=== PATIENT | male | born 1955 | race African-American/Black ===

== ENCOUNTER 2019-02-07 21:36 | Emergency (ER) | payer OTHER ==
[~2019-02-07] VITALS: Ht 167.6 cm; Wt 96.0 kg
[2019-02-07 22:41] VITALS: BP 125/82
== END 2019-02-08 01:14 | disposition left against medical advice (07) ==
LOC: ER 02-08 00:16
DX: R10.9 Unspecified abdominal pain (principal); Z53.21 Procedure and treatment not carried out due to patient leaving prior to being seen by health care provider

== ENCOUNTER 2019-02-09 02:22 | Inpatient (IN) | payer OTHER ==
[~2019-02-09] VITALS: Ht 167.6 cm; Wt 90.9 kg
[2019-02-09] MEDS ORDERED: MORPHINE SULFATE 4 MG/ML CPJ (NOT FOR IM USE) IV STA ×2 (03:39→06:00)
[2019-02-09] MEDS ORDERED: ONDANSETRON HCL 4MG/2ML INJ IV STA ×2 (03:39→06:00)
[2019-02-09] MEDS ORDERED: SODIUM CHLORIDE 0.9% 1,000 ML IV ONE ×3 (03:39→06:00)
[2019-02-09 04:13] LABS: BASOPHILS % 0.9 % (0.0-2.0); EOSINOPHILS % 2.3 % (0.0-5.0); HEMATOCRIT. 31.7 % (42.0-52.0); HEMOGLOBIN. 10.6 g/dL (14.0-18.0); LYMPHOCYTES % 14.7 % (20.0-50.0); MEAN CORPUSCULAR HEMOGLOBIN 28.9 pg (28.0-32.0); MEAN CORPUSCULAR VOLUME 86.6 fL (80.0-94.0); MEAN PLATELET VOLUME 6.1 fl (7.4-10.4); NEUTROPHILS % 77.1 % (40.0-76.0); PLATELET 577 x1000/uL (130-400); RED BLOOD CELL COUNT 3.66 mill/uL (4.7-6.1); RED CELL DISTRIBUTION WIDTH 13.7 % (11.6-14.6)
[2019-02-09 04:18] LABS: CHLORIDE 106 mEq/L (98-107)
[2019-02-09] MEDS ORDERED: SODIUM CHLORIDE 0.9% 2,000 ML IV ONE (05:55)
[2019-02-09] MEDS ORDERED: CEFTRIAXONE 1 G PREMIX 50 ML IV ONE (06:00)
[2019-02-09] MEDS ORDERED: PANTOPRAZOLE SODIUM 40 MG/VIAL IV ONE (06:00)
[2019-02-09] MEDS ORDERED: METRONIDAZOLE 500 MG PREMIX 100 ML IV ONE (06:00)
[2019-02-09] MEDS ORDERED: DIATR MEGLU/DIATRIZOATE SOLN 30ML ONE (06:06)
[2019-02-09] MEDS ORDERED: BARIUM SULFATE(VOLUMEN) 450 ML ORAL.SUSP ONE (06:06)
[2019-02-09] MEDS ORDERED: DIATR MEGLU/DIATRIZOATE SOLN 120ML ONE ×2 (06:07→07:15)
[2019-02-09 06:32] LABS: PROTHROMBIN TIME 10.8 sec (9.6-11.0)
[2019-02-09] MEDS ORDERED: MORPHINE SULFATE 4 MG/ML CPJ (NOT FOR IM USE) IV ONE (07:30)
[2019-02-09] MEDS ORDERED: PHENYLEPHRINE HCL 10 MG/ML 1ML (IV VIAL) IV ONE (09:07)
[2019-02-09] MEDS ORDERED: PROPOFOL 200MG/20ML VIAL IV ONE (09:09)
[2019-02-09] MEDS ORDERED: SUCCINYLCHOLINE CHLORIDE 200MG/10ML IV ONE (09:09)
[2019-02-09] MEDS ORDERED: ROCURONIUM BROMIDE 10MG/ML VIAL 5ML IV ONE ×2 (09:09→10:04)
[2019-02-09] MEDS ORDERED: FENTANYL CITRATE/PF 50MCG/ML 2ML VIAL ONE (09:10)
[2019-02-09] MEDS ORDERED: LIDOCAINE HCL 1% 20ML VIAL (Pyxis) INJ ONE (09:13)
[2019-02-09] MEDS ORDERED: EPHEDRINE SULFATE 50MG/ML VIAL ONE (09:14)
[2019-02-09] MEDS ORDERED: LEVOFLOXACIN 500MG PREMIX 100 ML IV ONE (09:34)
[2019-02-09] MEDS ORDERED: BUPIVACAINE HCL 0.5% (5MG/ML) 50ML ONE (10:08)
[2019-02-09] MEDS ORDERED: ONDANSETRON HCL 4MG/2ML INJ ONE (10:13)
[2019-02-09] MEDS ORDERED: NEOSTIGMINE METHYLSULFATE 1MG/ML 10 ML VIAL ONE (10:14)
[2019-02-09] MEDS ORDERED: GLYCOPYRROLATE 0.2 MG/ML 2ML VIAL ONE ×2 (10:14→10:17)
[2019-02-09] MEDS ORDERED: BUPIVACAINE HCL 0.5% 290 ML in ON-Q PM015 DRUG DELIV DEVICE 1 EA IR SCH (10:15)
[2019-02-09] MEDS ORDERED: MIDAZOLAM HCL 2 MG/2 ML VIAL ONE (10:25)
[2019-02-09] MEDS ORDERED: HYDROMORPHONE HCL/PF 2MG/ML (OR) ONE (10:41)
[2019-02-09 10:46] LABS: CLARITY URINE CLEAR (CLEAR); COLOR URINE YELLOW (YELLOW); KETONES URINE NEGATIVE (NEGATIVE); LEUKOCYTE ESTERASE URINE NEGATIVE (NEGATIVE); NITRITE URINE NEGATIVE (NEGATIVE); OCCULT BLOOD URINE TRACE (NEGATIVE); PH URINE 6.5 (4.5-8.0); PROTEIN URINE TRACE (NEGATIVE); SPECIFIC GRAVITY URINE 1.022 (1.005-1.030); UROBILINOGEN URINE 0.2 E.U./dL (0.2-1.0)
[2019-02-09 10:56] LABS: *AMPHETAMINES SCREEN URINE NEGATIVE (NEGATIVE); *BARBITURATES SCREEN URINE NEGATIVE (NEGATIVE); *BENZODIAZEPINES SCREEN URINE NEGATIVE (NEGATIVE)
[2019-02-09 10:57] LABS: CANNABINOID URINE SCREEN NEGATIVE (NEGATIVE); METHADONE URINE SCREEN NEGATIVE (NEGATIVE); OPIATES URINE SCREEN PRESUMTIVE POSITIVE (NEGATIVE); PHENCYCLIDINE URINE SCREEN NEGATIVE (NEGATIVE)
[2019-02-09] MEDS ORDERED: ONDANSETRON HCL 4MG/2ML INJ IV PRN (11:00)
[2019-02-09] MEDS ORDERED: HYDROMORPHONE HCL/PF 2MG/ML CPJ IV PRN (11:00)
[2019-02-09 11:01] LABS: *COCAINE SCREEN URINE NEGATIVE (NEGATIVE)
[2019-02-09] MEDS: FENTANYL CITRATE/PF 50MCG/ML 2ML VIAL IV PRN ×2 (11:52→12:44)
[2019-02-09 16:00] VITALS: BP 133/71
[2019-02-09] MEDS ORDERED: MORPHINE SULFATE 2 MG/ML CPJ (NOT FOR IM USE) IV PRN ×2 (17:01→21:30)
[2019-02-09] MEDS ORDERED: MORPHINE SULFATE 4 MG/ML CPJ (NOT FOR IM USE) IV PRN (17:02)
[2019-02-09] MEDS ORDERED: IPRATROPIUM/ALBUTEROL 0.5-3(2.5)MG/3ML NEB HHN PRN (18:30)
[2019-02-09] MEDS ORDERED: NALOXONE HCL 0.4 MG/ML 1ML VIAL IV PRN (18:30)
[2019-02-09 20:00] VITALS: BP 123/72
[2019-02-09] MEDS: DEXT 5%/0.45% NACL KCL 20MEQ/L 1,000 ML IV SCH (21:36)
[2019-02-10] VITALS (9 sets, daily range): BP systolic 114–148; BP diastolic 65–97
[2019-02-10] MEDS: LORAZEPAM 2MG/ML CPJ IV PRN ×3 (01:11→20:49)
[2019-02-10] MEDS: DEXT 5%/0.45% NACL KCL 20MEQ/L 1,000 ML IV SCH (06:07)
[2019-02-10 07:14] LABS: MEAN CORPUSCULAR HEMOGLOBIN 28.7 pg (28.0-32.0); MEAN CORPUSCULAR VOLUME 85.9 fL (80.0-94.0); MEAN PLATELET VOLUME 6.3 fl (7.4-10.4); PLATELET 473 x1000/uL (130-400); RED BLOOD CELL COUNT 3.14 mill/uL (4.7-6.1); RED CELL DISTRIBUTION WIDTH 13.4 % (11.6-14.6)
[2019-02-10 07:34] LABS: CHLORIDE 105 mEq/L (98-107)
[2019-02-10 07:43] LABS: HDL CHOLESTEROL 43 mg/dL (40-59)
[2019-02-10 07:45] LABS: LDL CHOLESTEROL 33 mg/dL (5-100)
[2019-02-10 07:46] LABS: TOTAL IRON BINDING CAPACITY 207 ug/dL (250-450)
[2019-02-10 08:39] LABS: PLATELET ESTIMATE SLIGHTLY INCREASED
[2019-02-10] MEDS ORDERED: ACETAMINOPHEN 650MG SUPP PR PRN (08:45)
[2019-02-10] MEDS ORDERED: LEVOFLOXACIN 500MG PREMIX 100 ML IV SCH (10:00)
[2019-02-10] MEDS: SODIUM CHLORIDE 0.9% 1,000 ML IV SCH ×2 (10:09→20:51)
[2019-02-10] MEDS: MORPHINE SULFATE 2 MG/ML CPJ (NOT FOR IM USE) IV PRN ×2 (12:21→16:40)
[2019-02-10] MEDS ORDERED: IPRATROPIUM/ALBUTEROL 0.5-3(2.5)MG/3ML NEB HHN PRN (14:15)
[2019-02-10] MEDS ORDERED: NICOTINE 21MG PATCH TD NR (14:15)
[2019-02-10] MEDS: CEFEPIME 2,000 MG in DEXT 5% WATER 100 ML IV SCH (14:25)
[2019-02-10] MEDS: METRONIDAZOLE 500 MG PREMIX 100 ML IV SCH (16:39)
[2019-02-10] MEDS: IRON SUCROSE COMPLEX 100 MG/5 ML ML IV SCH (16:40)
[2019-02-10] MEDS: BUDESONIDE 0.5MG/2ML NEB HHN SCH (20:44)
[2019-02-10] MEDS: IPRATROPIUM/ALBUTEROL 0.5-3(2.5)MG/3ML NEB HHN SCH (20:44)
[2019-02-11] VITALS (14 sets, daily range): BP systolic 114–176; BP diastolic 48–107
[2019-02-11] MEDS: METRONIDAZOLE 500 MG PREMIX 100 ML IV SCH ×3 (00:25→16:50)
[2019-02-11] MEDS: ACETYLCYSTEINE 100MG/ML 10% VIAL 4ML INH SCH ×4 (00:41→16:19)
[2019-02-11] MEDS: IPRATROPIUM/ALBUTEROL 0.5-3(2.5)MG/3ML NEB HHN SCH ×6 (00:41→20:05)
[2019-02-11] MEDS: CEFEPIME 2,000 MG in DEXT 5% WATER 100 ML IV SCH ×2 (01:37→15:14)
[2019-02-11] MEDS: MORPHINE SULFATE 2 MG/ML CPJ (NOT FOR IM USE) IV PRN ×2 (01:54→18:38)
[2019-02-11] MEDS: SODIUM CHLORIDE 0.9% 1,000 ML IV SCH ×2 (06:46→15:14)
[2019-02-11] MEDS: BUDESONIDE 0.5MG/2ML NEB HHN SCH ×2 (08:41→20:05)
[2019-02-11 10:17] LABS: HEMATOCRIT. 30.3 % (42.0-52.0); HEMOGLOBIN. 10.1 g/dL (14.0-18.0); MEAN CORPUSCULAR HEMOGLOBIN 29.1 pg (28.0-32.0); MEAN CORPUSCULAR VOLUME 87.7 fL (80.0-94.0); MEAN PLATELET VOLUME 6.3 fl (7.4-10.4); PLATELET 508 x1000/uL (130-400); RED BLOOD CELL COUNT 3.46 mill/uL (4.7-6.1); RED CELL DISTRIBUTION WIDTH 13.5 % (11.6-14.6)
[2019-02-11 10:25] LABS: CHLORIDE 103 mEq/L (98-107)
[2019-02-11 10:30] LABS: PHOSPHORUS 2.5 mg/dL (2.5-4.9)
[2019-02-11 11:25] LABS: PLATELET ESTIMATE INCREASED
[2019-02-11] MEDS: NICOTINE 21MG PATCH TD SCH (15:21)
[2019-02-11] MEDS: IRON SUCROSE COMPLEX 100 MG/5 ML ML IV SCH (16:51)
[2019-02-11] MEDS: ONDANSETRON HCL 4MG/2ML INJ IV PRN (17:37)
[2019-02-11 21:07] LABS: HEMATOCRIT 27.8 % (42.0-52.0); HEMOGLOBIN 9.3 g/dL (14.0-18.0)
[2019-02-11] MEDS: PANTOPRAZOLE SODIUM 40 MG/VIAL IV SCH (21:08)
[2019-02-11] MEDS: LORAZEPAM 2MG/ML CPJ IV PRN (21:08)
[2019-02-12] VITALS (14 sets, daily range): BP systolic 98–134; BP diastolic 45–91
[2019-02-12] MEDS: ACETYLCYSTEINE 100MG/ML 10% VIAL 4ML INH SCH ×3 (00:38→14:10)
[2019-02-12] MEDS: CEFEPIME 2,000 MG in DEXT 5% WATER 100 ML IV SCH ×2 (01:39→14:05)
[2019-02-12] MEDS: SODIUM CHLORIDE 0.9% 1,000 ML IV SCH ×3 (01:40→21:43)
[2019-02-12] MEDS: METRONIDAZOLE 500 MG PREMIX 100 ML IV SCH ×4 (01:40→23:19)
[2019-02-12] MEDS: LORAZEPAM 2MG/ML CPJ IV PRN ×3 (02:46→20:12)
[2019-02-12] MEDS: IPRATROPIUM/ALBUTEROL 0.5-3(2.5)MG/3ML NEB HHN SCH ×6 (04:05→21:30)
[2019-02-12 05:32] LABS: CHLORIDE 104 mEq/L (98-107)
[2019-02-12 05:33] LABS: BASOPHILS % 0.2 % (0.0-2.0); HEMATOCRIT. 28.5 % (42.0-52.0); HEMOGLOBIN. 9.6 g/dL (14.0-18.0); LYMPHOCYTES % 8.7 % (20.0-50.0); MEAN CORPUSCULAR HEMOGLOBIN 28.6 pg (28.0-32.0); MEAN CORPUSCULAR VOLUME 85.1 fL (80.0-94.0); MEAN PLATELET VOLUME 6.2 fl (7.4-10.4); MONOCYTES % 7.4 % (2.0-8.0); NEUTROPHILS % 80.7 % (40.0-76.0); PLATELET 564 x1000/uL (130-400); RED BLOOD CELL COUNT 3.34 mill/uL (4.7-6.1); RED CELL DISTRIBUTION WIDTH 13.6 % (11.6-14.6)
[2019-02-12 05:45] LABS: PHOSPHORUS 3.2 mg/dL (2.5-4.9)
[2019-02-12] MEDS: BUDESONIDE 0.5MG/2ML NEB HHN SCH ×2 (06:00→21:30)
[2019-02-12] MEDS: MORPHINE SULFATE 2 MG/ML CPJ (NOT FOR IM USE) IV PRN ×2 (06:05→14:05)
[2019-02-12] MEDS: NICOTINE 21MG PATCH TD SCH (09:02)
[2019-02-12] MEDS: PANTOPRAZOLE SODIUM 40 MG/VIAL IV SCH ×2 (09:02→20:12)
[2019-02-12] MEDS: IRON SUCROSE COMPLEX 100 MG/5 ML ML IV SCH (15:57)
[2019-02-13] VITALS (12 sets, daily range): BP systolic 111–145; BP diastolic 72–85
[2019-02-13] MEDS: IPRATROPIUM/ALBUTEROL 0.5-3(2.5)MG/3ML NEB HHN SCH ×6 (00:38→20:00)
[2019-02-13] MEDS: CEFEPIME 2,000 MG in DEXT 5% WATER 100 ML IV SCH ×2 (01:12→14:22)
[2019-02-13] MEDS: LORAZEPAM 2MG/ML CPJ IV PRN ×3 (01:47→21:03)
[2019-02-13] MEDS: ACETYLCYSTEINE 100MG/ML 10% VIAL 4ML INH SCH ×2 (05:51→08:36)
[2019-02-13] MEDS: METRONIDAZOLE 500 MG PREMIX 100 ML IV SCH ×3 (05:56→22:50)
[2019-02-13 07:15] LABS: BASOPHILS % 0.4 % (0.0-2.0); HEMATOCRIT. 26.7 % (42.0-52.0); HEMOGLOBIN. 8.9 g/dL (14.0-18.0); LYMPHOCYTES % 12.1 % (20.0-50.0); MEAN CORPUSCULAR HEMOGLOBIN 28.1 pg (28.0-32.0); MEAN CORPUSCULAR VOLUME 84.9 fL (80.0-94.0); MEAN PLATELET VOLUME 6.3 fl (7.4-10.4); MONOCYTES % 10.4 % (2.0-8.0); NEUTROPHILS % 70.1 % (40.0-76.0); PLATELET 508 x1000/uL (130-400); RED BLOOD CELL COUNT 3.15 mill/uL (4.7-6.1); RED CELL DISTRIBUTION WIDTH 13.6 % (11.6-14.6)
[2019-02-13] MEDS: SODIUM CHLORIDE 0.9% 1,000 ML IV SCH (07:30)
[2019-02-13] MEDS: BUDESONIDE 0.5MG/2ML NEB HHN SCH ×2 (08:36→20:36)
[2019-02-13] MEDS: PANTOPRAZOLE SODIUM 40 MG/VIAL IV SCH ×2 (08:57→21:02)
[2019-02-13 09:15] LABS: CHLORIDE 108 mEq/L (98-107)
[2019-02-13] MEDS: NICOTINE 21MG PATCH TD SCH (10:04)
[2019-02-13] MEDS ORDERED: KCL 20MEQ/100ML PREMIX 100 ML IV NR (12:00)
[2019-02-13] MEDS: ONDANSETRON HCL 4MG/2ML INJ IV PRN ×2 (12:33→16:35)
[2019-02-13] MEDS: HYDROMORPHONE HCL/PF 2MG/ML CPJ IV PRN ×2 (18:57→23:09)
[2019-02-13] MEDS: GUAIFENESIN 600MG ER TABLET PO SCH (21:03)
[2019-02-14] VITALS (13 sets, daily range): BP systolic 118–151; BP diastolic 54–97
[2019-02-14] MEDS: IPRATROPIUM/ALBUTEROL 0.5-3(2.5)MG/3ML NEB HHN SCH ×6 (02:00→20:39)
[2019-02-14] MEDS: CEFEPIME 2,000 MG in DEXT 5% WATER 100 ML IV SCH ×2 (03:10→13:33)
[2019-02-14] MEDS: LORAZEPAM 2MG/ML CPJ IV PRN (06:47)
[2019-02-14 08:02] LABS: BASOPHILS % 0.9 % (0.0-2.0); EOSINOPHILS % 7.4 % (0.0-5.0); HEMATOCRIT. 24.7 % (42.0-52.0); HEMOGLOBIN. 8.3 g/dL (14.0-18.0); LYMPHOCYTES % 13.5 % (20.0-50.0); MEAN CORPUSCULAR HEMOGLOBIN 28.6 pg (28.0-32.0); MEAN CORPUSCULAR VOLUME 85.3 fL (80.0-94.0); MEAN PLATELET VOLUME 6.4 fl (7.4-10.4); MONOCYTES % 10.3 % (2.0-8.0); NEUTROPHILS % 67.9 % (40.0-76.0); PLATELET 491 x1000/uL (130-400); RED CELL DISTRIBUTION WIDTH 14.1 % (11.6-14.6)
[2019-02-14 08:10] LABS: CHLORIDE 105 mEq/L (98-107)
[2019-02-14 08:15] LABS: PHOSPHORUS 2.9 mg/dL (2.5-4.9)
[2019-02-14] MEDS: METRONIDAZOLE 500 MG PREMIX 100 ML IV SCH (08:22)
[2019-02-14] MEDS: PANTOPRAZOLE SODIUM 40 MG/VIAL IV SCH ×2 (08:22→21:08)
[2019-02-14] MEDS: GUAIFENESIN 600MG ER TABLET PO SCH ×2 (08:22→21:08)
[2019-02-14] MEDS: NICOTINE 21MG PATCH TD SCH (08:23)
[2019-02-14] MEDS ORDERED: POTASSIUM CHLORIDE 20MEQ TABLET SR PO NR ×2 (12:00→16:00)
[2019-02-14] MEDS ORDERED: FERROUS SULFATE 325MG TABLET PO SCH (13:00)
[2019-02-14] MEDS: FERROUS SULFATE 325MG TABLET PO SCH (17:28)
[2019-02-14] MEDS: ASCORBIC ACID 250 MG TABLET PO SCH (17:28)
[2019-02-14] MEDS ORDERED: ASCORBIC ACID 250 MG TABLET PO SCH (21:00)
[2019-02-14] MEDS: HYDROMORPHONE HCL/PF 2MG/ML CPJ IV PRN (23:18)
[2019-02-15] VITALS (7 sets, daily range): BP systolic 117–126; BP diastolic 65–79
[2019-02-15] MEDS: CEFEPIME 2,000 MG in DEXT 5% WATER 100 ML IV SCH (01:42)
[2019-02-15] MEDS: IPRATROPIUM/ALBUTEROL 0.5-3(2.5)MG/3ML NEB HHN SCH ×2 (02:00→09:26)
[2019-02-15] MEDS: HYDROMORPHONE HCL/PF 2MG/ML CPJ IV PRN (05:53)
[2019-02-15] MEDS ORDERED: HYDROCODONE/ACETAMINOPHEN 5/325MG TABLET PO PRN (07:45)
[2019-02-15 08:09] LABS: BASOPHILS % 0.3 % (0.0-2.0); EOSINOPHILS % 5.6 % (0.0-5.0); HEMATOCRIT. 25.5 % (42.0-52.0); HEMOGLOBIN. 8.4 g/dL (14.0-18.0); LYMPHOCYTES % 14.7 % (20.0-50.0); MEAN CORPUSCULAR HEMOGLOBIN 28.4 pg (28.0-32.0); MEAN CORPUSCULAR VOLUME 86.2 fL (80.0-94.0); MEAN PLATELET VOLUME 6.4 fl (7.4-10.4); MONOCYTES % 10.4 % (2.0-8.0); PLATELET 538 x1000/uL (130-400); RED BLOOD CELL COUNT 2.96 mill/uL (4.7-6.1); RED CELL DISTRIBUTION WIDTH 14.2 % (11.6-14.6)
[2019-02-15 08:47] LABS: CHLORIDE 105 mEq/L (98-107)
[2019-02-15 08:57] LABS: PHOSPHORUS 3.4 mg/dL (2.5-4.9)
[2019-02-15] MEDS: ASCORBIC ACID 250 MG TABLET PO SCH (08:58)
[2019-02-15] MEDS: GUAIFENESIN 600MG ER TABLET PO SCH (08:58)
[2019-02-15] MEDS: FERROUS SULFATE 325MG TABLET PO SCH (08:58)
[2019-02-15] MEDS: PANTOPRAZOLE SODIUM 40 MG/VIAL IV SCH (08:58)
[2019-02-15] MEDS: NICOTINE 21MG PATCH TD SCH (08:59)
[2019-02-15] MEDS ORDERED: HYDR-4001 MT (11:13)
[2019-02-15] MEDS ORDERED: OMEP40CA34 MT (11:13)
== END 2019-02-15 12:30 | disposition home or self-care (01) | DRG 710 ==
LOC: ER 02:22 → ORIP 02:23 → EDBEDREQ 07:08 → EDBEDREQSVC 07:08 → EDBEDREQTM 07:08 → EDBEDREQ 07:42 → 6EST 16:52 → 5EST 02-10 11:26
PROVIDERS: ADMIT Internal Medicine; ATTEND Internal Medicine
PROC: 0DU607Z Supplement Stomach with Autologous Tissue Substitute, Open Approach (ICD-10-PCS; principal; 2019-02-09)
DX: A41.9 Sepsis, unspecified organism (principal); J96.00 Acute respiratory failure, unspecified whether with hypoxia or hypercapnia; N17.0 Acute kidney failure with tubular necrosis; R65.21 Severe sepsis with septic shock; K25.5 Chronic or unspecified gastric ulcer with perforation; J18.9 Pneumonia, unspecified organism; K65.9 Peritonitis, unspecified; E11.9 Type 2 diabetes mellitus without complications; D50.9 Iron deficiency anemia, unspecified; E87.6 Hypokalemia; M51.37 Other intervertebral disc degeneration, lumbosacral region; E87.1 Hypo-osmolality and hyponatremia; E66.9 Obesity, unspecified; F17.210 Nicotine dependence, cigarettes, uncomplicated; Z82.49 Family history of ischemic heart disease and other diseases of the circulatory system; Z87.11 Personal history of peptic ulcer disease; Z88.0 Allergy status to penicillin; Z79.84 Long term (current) use of oral hypoglycemic drugs; Z68.32 Body mass index [BMI] 32.0-32.9, adult; Z71.3 Dietary counseling and surveillance
CPT/HCPCS: 36415; 71045; 74176; 80048; 80061; 80305; 81003; 82728; 83036; 83540; 83550; 83735; 83880; 84100; 84145; 85014; 85018; 86677; 86850; 86900; 93005; 93970; 94640; 97116; 97162; 97530; 99285; C9113; J0330; J0692; J1170; J1956; J2060; J2250; J2270; J2370; J2405; J2704; J2710; J3010; J3480; J3490; J7030; J7060; J7608; J7620; J7626; Q9963

== ENCOUNTER 2019-09-01 11:23 | Inpatient (IN) | payer OTHER ==
[~2019-09-01] VITALS: Ht 182.9 cm; Wt 95.0 kg
[~2019-09-01 11:23] MED LIST: HYDR-4001 MT; OMEP40CA12 MT
[2019-09-01] MEDS ORDERED: SODIUM CHLORIDE 0.9% 1,000 ML IV ONE (11:47)
[2019-09-01] MEDS ORDERED: PANTOPRAZOLE SODIUM 40 MG/VIAL IV STA (11:47)
[2019-09-01] MEDS ORDERED: PANTOPRAZOLE 80 MG in SODIUM CHLORIDE 0.9% 100 ML IV STA (11:47)
[2019-09-01 13:07] LABS: INR 1.1; PROTHROMBIN TIME 11.8 sec (9.6-11.0)
[2019-09-01 13:10] LABS: CHLORIDE 107 mEq/L (98-107)
[2019-09-01 13:11] LABS: BASOPHILS % 0.4 % (0.0-2.0); EOSINOPHILS % 0.2 % (0.0-5.0); LYMPHOCYTES % 13.1 % (20.0-50.0); MEAN CORPUSCULAR HEMOGLOBIN 29.7 pg (28.0-32.0); MEAN PLATELET VOLUME 6.5 fl (7.4-10.4); MONOCYTES % 4.5 % (2.0-8.0); NEUTROPHILS % 81.8 % (40.0-76.0); PLATELET 373 x1000/uL (130-400); RED BLOOD CELL COUNT 1.13 mill/uL (4.7-6.1)
[2019-09-01 13:14] LABS: HEMATOCRIT. 10.5 % (42.0-52.0); HEMOGLOBIN. 3.4 g/dL (14.0-18.0)
[2019-09-01] MEDS ORDERED: LORAZEPAM 2MG/ML CPJ IV PRN (16:15)
[2019-09-01] MEDS ORDERED: LORAZEPAM 2MG/ML CPJ IV ONE (16:15)
[2019-09-01] MEDS ORDERED: ACETAMINOPHEN 325MG TABLET PO PRN (17:15)
[2019-09-01] MEDS ORDERED: IPRATROPIUM/ALBUTEROL 0.5-3(2.5)MG/3ML NEB HHN PRN (17:15)
[2019-09-01] MEDS ORDERED: ONDANSETRON HCL 4MG/2ML INJ IV PRN (17:15)
[2019-09-01] MEDS ORDERED: HYDROCODONE/ACETAMINOPHEN 5/325MG TABLET PO PRN (17:15)
[2019-09-01] MEDS ORDERED: CLONIDINE 0.1MG TABLET PO PRN (17:15)
[2019-09-01] MEDS ORDERED: LORAZEPAM 0.5MG TABLET PO PRN (17:15)
[2019-09-01 18:17] LABS: BG BASE EXCESS -4.2 mmol/L (-2.0-2.0); BG CARBOXYHEMOGLOBIN 0.7 % (0.5-1.5); BG DEOXYHEMOGLOBIN 3.5 % (0.0-5.0); BG FRACTION INSPIRED OXYGEN 21; BG HCO3 ACT 19.9 mmol/L (22.0-26.0); BG METHEMOGLOBIN 0.3 % (0.0-1.5); BG OXYGEN SATURATION 96.5 % (92.0-98.5); BG OXYHEMOGLOBIN 95.5 % (94.0-97.0); BG PCO2 31.2 mmHg (35.0-45.0); BG PH 7.422 (7.350-7.450); BG PO2 86.2 mmHg (75.0-100.0); BG SAMPLE SITE LEFT RADIAL; BG TOTAL HEMOGLOBIN 6.1 g/dL (12.0-18.0); BG VENT MODE ROOM AIR
[2019-09-01] MEDS ORDERED: CEFTRIAXONE 1 G PREMIX 50 ML IV NR (18:38)
[2019-09-01 18:44] LABS: HEMOGLOBIN 5.7 g/dL (14.0-18.0)
[2019-09-01 18:45] LABS: HEMATOCRIT 17.7 % (42.0-52.0)
[2019-09-01 18:54] LABS: CREATINE KINASE MB FRACTION 2.1 ng/mL (0.5-3.6)
[2019-09-01] MEDS: SODIUM CHLORIDE 0.9% 1,000 ML IV SCH (19:35)
[2019-09-01] MEDS ORDERED: IOHEXOL-300 100 ML BOTTLE ONE (20:28)
[2019-09-02] MEDS ORDERED: CEFTRIAXONE 1 G PREMIX 50 ML IV NR
[2019-09-02] MEDS: SODIUM CHLORIDE 0.9% 1,000 ML IV SCH (00:01)
[2019-09-02 00:41] VITALS: BP 120/61
[2019-09-02] MEDS ORDERED: PANTOPRAZOLE SODIUM 40 MG/VIAL IV SCH (09:00)
[2019-09-02] MEDS ORDERED: CEFTRIAXONE 1 G PREMIX 50 ML IV SCH (21:00)
== END 2019-09-02 03:20 | disposition left against medical advice (07) | DRG 253 ==
LOC: ER 11:23 → EDBEDREQ 12:10 → 5EST 13:20 → EDBEDREQTM 13:57 → EDBEDREQ 13:57 → ENRESERV 20:37 → 5EST 23:47
PROVIDERS: ADMIT Internal Medicine; ATTEND Internal Medicine
PROC: 30233N1 Transfusion of Nonautologous Red Blood Cells into Peripheral Vein, Percutaneous Approach (ICD-10-PCS; principal; 2019-09-01)
DX: K92.0 Hematemesis (principal); G93.41 Metabolic encephalopathy; I95.9 Hypotension, unspecified; E87.2 Acidosis; E11.65 Type 2 diabetes mellitus with hyperglycemia; F17.200 Nicotine dependence, unspecified, uncomplicated; D50.0 Iron deficiency anemia secondary to blood loss (chronic); D72.810 Lymphocytopenia; K21.9 Gastro-esophageal reflux disease without esophagitis; R79.89 Other specified abnormal findings of blood chemistry; Z53.29 Procedure and treatment not carried out because of patient's decision for other reasons; E66.9 Obesity, unspecified; D72.829 Elevated white blood cell count, unspecified; Z88.0 Allergy status to penicillin; Z71.3 Dietary counseling and surveillance; Z71.6 Tobacco abuse counseling; Z68.26 Body mass index [BMI] 26.0-26.9, adult
CPT/HCPCS: 36415; 36600; 71045; 74177; 80053; 82375; 82550; 82553; 82805; 82941; 83605; 84484; 85014; 85018; 85025; 86850; 86900; 86920; 93005; 96365; 99291; C9113; J0696; J2060; J2405; J7030; J7050; P9016; Q9967

== ENCOUNTER 2019-09-12 18:14 | Inpatient (IN) | payer OTHER ==
[~2019-09-12] VITALS: Ht 168.9 cm; Wt 95.3 kg
[2019-09-12] MEDS ORDERED: PANTOPRAZOLE SODIUM 40 MG/VIAL IV STA (18:52)
[2019-09-12 19:14] LABS: PROTHROMBIN TIME 10.8 sec (9.6-11.0)
[2019-09-12 19:20] LABS: CHLORIDE 109 mEq/L (98-107)
[2019-09-12 19:31] LABS: BASOPHILS % 0.5 % (0.0-2.0); EOSINOPHILS % 3.7 % (0.0-5.0); LYMPHOCYTES % 22.7 % (20.0-50.0); MEAN CORPUSCULAR HEMOGLOBIN 27.7 pg (28.0-32.0); MEAN CORPUSCULAR VOLUME 86.7 fL (80.0-94.0); MONOCYTES % 7.4 % (2.0-8.0); NEUTROPHILS % 65.7 % (40.0-76.0); PLATELET 654 x1000/uL (130-400); RED BLOOD CELL COUNT 2.06 mill/uL (4.7-6.1); RED CELL DISTRIBUTION WIDTH 16.6 % (11.6-14.6)
[2019-09-12 19:32] LABS: HEMATOCRIT. 17.9 % (42.0-52.0); HEMOGLOBIN. 5.7 g/dL (14.0-18.0)
[2019-09-12] MEDS ORDERED: ONDANSETRON HCL 4MG/2ML INJ IV PRN (22:45)
[2019-09-12] MEDS ORDERED: IPRATROPIUM/ALBUTEROL 0.5-3(2.5)MG/3ML NEB NEB PRN (22:45)
[2019-09-12] MEDS: SODIUM CHLORIDE 0.9% 1,000 ML IV SCH (23:43)
[2019-09-13] VITALS (17 sets, daily range): BP systolic 100–153; BP diastolic 52–82
[2019-09-13] MEDS: PANTOPRAZOLE 80 MG in SODIUM CHLORIDE 0.9% 100 ML IV SCH ×2 (00:16→11:14)
[2019-09-13] MEDS ORDERED: DEXTROSE 50% WATER 50ML SYRINGE IV PRN (04:00)
[2019-09-13] MEDS: BLOOD SUGAR DIAGNOSTIC STRIP TEST SCH ×4 (06:08→21:00)
[2019-09-13] MEDS: INSULIN LISPRO 100 UNITS/ML SUBCUT SCH ×4 (06:33→21:00)
[2019-09-13 06:36] LABS: BASOPHILS % 0.6 % (0.0-2.0); EOSINOPHILS % 4.3 % (0.0-5.0); LYMPHOCYTES % 31.9 % (20.0-50.0); MEAN CORPUSCULAR HEMOGLOBIN 28.7 pg (28.0-32.0); MEAN CORPUSCULAR VOLUME 88.8 fL (80.0-94.0); MONOCYTES % 6.6 % (2.0-8.0); NEUTROPHILS % 56.6 % (40.0-76.0); PLATELET 551 x1000/uL (130-400); RED BLOOD CELL COUNT 2.24 mill/uL (4.7-6.1); RED CELL DISTRIBUTION WIDTH 18.5 % (11.6-14.6)
[2019-09-13 06:46] LABS: CLARITY URINE CLEAR (CLEAR); COLOR URINE YELLOW (YELLOW); KETONES URINE NEGATIVE (NEGATIVE); LEUKOCYTE ESTERASE URINE TRACE (NEGATIVE); NITRITE URINE NEGATIVE (NEGATIVE); OCCULT BLOOD URINE NEGATIVE (NEGATIVE); PROTEIN URINE NEGATIVE (NEGATIVE); SPECIFIC GRAVITY URINE 1.006 (1.005-1.030)
[2019-09-13 06:48] LABS: HEMATOCRIT. 19.9 % (42.0-52.0); HEMOGLOBIN. 6.4 g/dL (14.0-18.0)
[2019-09-13 06:50] LABS: CHLORIDE 112 mEq/L (98-107)
[2019-09-13 06:57] LABS: LDL CHOLESTEROL 76 mg/dL (5-100)
[2019-09-13 06:58] LABS: CREATINE KINASE 258 IU/L (39-308)
[2019-09-13 06:59] LABS: HDL CHOLESTEROL 41 mg/dL (40-59)
[2019-09-13 07:01] LABS: CREATINE KINASE MB FRACTION < 1.0 ng/mL (0.5-3.6)
[2019-09-13 07:04] LABS: *AMPHETAMINES SCREEN URINE NEGATIVE (NEGATIVE); *BARBITURATES SCREEN URINE NEGATIVE (NEGATIVE); *BENZODIAZEPINES SCREEN URINE NEGATIVE (NEGATIVE); *COCAINE SCREEN URINE NEGATIVE (NEGATIVE); CANNABINOID URINE SCREEN NEGATIVE (NEGATIVE)
[2019-09-13 07:05] LABS: METHADONE URINE SCREEN NEGATIVE (NEGATIVE); OPIATES URINE SCREEN NEGATIVE (NEGATIVE); PHENCYCLIDINE URINE SCREEN NEGATIVE (NEGATIVE)
[2019-09-13 08:59] LABS: HEMOGLOBIN 6.8 g/dL (14.0-18.0)
[2019-09-13] MEDS: SODIUM CHLORIDE 0.9% 1,000 ML IV SCH (11:15)
[2019-09-13] MEDS ORDERED: MIDAZOLAM HCL 5 MG/5 ML VIAL ONE (12:06)
[2019-09-13] MEDS ORDERED: FENTANYL CITRATE/PF 50MCG/ML 2ML VIAL ONE (12:07)
[2019-09-13] MEDS ORDERED: MIDAZOLAM HCL 5 MG/5 ML VIAL IV PRN (12:15)
[2019-09-13] MEDS ORDERED: FENTANYL CITRATE/PF 50MCG/ML 2ML VIAL IV PRN (12:17)
[2019-09-13 15:29] LABS: BASOPHILS % 0.2 % (0.0-2.0); EOSINOPHILS % 4.4 % (0.0-5.0); HEMATOCRIT. 25.1 % (42.0-52.0); HEMOGLOBIN. 8.5 g/dL (14.0-18.0); LYMPHOCYTES % 25.5 % (20.0-50.0); MEAN CORPUSCULAR HEMOGLOBIN 30.3 pg (28.0-32.0); MEAN CORPUSCULAR VOLUME 89.6 fL (80.0-94.0); MEAN PLATELET VOLUME 6.2 fl (7.4-10.4); MONOCYTES % 6.9 % (2.0-8.0); PLATELET 596 x1000/uL (130-400); RED BLOOD CELL COUNT 2.81 mill/uL (4.7-6.1); RED CELL DISTRIBUTION WIDTH 17.6 % (11.6-14.6)
[2019-09-13 15:45] LABS: CREATINE KINASE 269 IU/L (39-308)
[2019-09-13 15:46] LABS: CREATINE KINASE MB FRACTION < 1.0 ng/mL (0.5-3.6)
[2019-09-13] MEDS: SUCRALFATE 1G TABLET PO SCH ×2 (17:23→21:31)
[2019-09-13] MEDS ORDERED: LORAZEPAM 0.5MG TABLET PO PRN (21:00)
[2019-09-13 22:56] LABS: BASOPHILS % 0.5 % (0.0-2.0); EOSINOPHILS % 4.9 % (0.0-5.0); HEMATOCRIT. 23.9 % (42.0-52.0); HEMOGLOBIN. 7.8 g/dL (14.0-18.0); LYMPHOCYTES % 29.2 % (20.0-50.0); MEAN CORPUSCULAR HEMOGLOBIN 28.8 pg (28.0-32.0); MEAN CORPUSCULAR VOLUME 88.3 fL (80.0-94.0); MEAN PLATELET VOLUME 5.8 fl (7.4-10.4); MONOCYTES % 6.9 % (2.0-8.0); NEUTROPHILS % 58.5 % (40.0-76.0); PLATELET 549 x1000/uL (130-400); RED BLOOD CELL COUNT 2.71 mill/uL (4.7-6.1); RED CELL DISTRIBUTION WIDTH 18.1 % (11.6-14.6)
[2019-09-14] VITALS (10 sets, daily range): BP systolic 109–145; BP diastolic 53–84
[2019-09-14] MEDS: SODIUM CHLORIDE 0.9% 1,000 ML IV SCH ×2 (00:07→11:41)
[2019-09-14] MEDS: BLOOD SUGAR DIAGNOSTIC STRIP TEST SCH (06:41)
[2019-09-14] MEDS: INSULIN LISPRO 100 UNITS/ML SUBCUT SCH ×2 (06:41→12:14)
[2019-09-14] MEDS: SUCRALFATE 1G TABLET PO SCH ×2 (06:41→11:41)
[2019-09-14 06:44] LABS: BASOPHILS % 1.3 % (0.0-2.0); EOSINOPHILS % 4.3 % (0.0-5.0); HEMATOCRIT. 24.5 % (42.0-52.0); HEMOGLOBIN. 7.9 g/dL (14.0-18.0); LYMPHOCYTES % 25.8 % (20.0-50.0); MEAN CORPUSCULAR HEMOGLOBIN 28.7 pg (28.0-32.0); MEAN CORPUSCULAR VOLUME 88.4 fL (80.0-94.0); MEAN PLATELET VOLUME 6.2 fl (7.4-10.4); MONOCYTES % 6.3 % (2.0-8.0); NEUTROPHILS % 62.3 % (40.0-76.0); PLATELET 556 x1000/uL (130-400); RED BLOOD CELL COUNT 2.77 mill/uL (4.7-6.1); RED CELL DISTRIBUTION WIDTH 18.1 % (11.6-14.6)
[2019-09-14] MEDS ORDERED: OMEPRAZOLE 20MG CAPSULE EXTENDED RELEASE PO SCH (06:50)
[2019-09-14 08:07] LABS: CHLORIDE 110 mEq/L (98-107)
[2019-09-14 08:18] LABS: PHOSPHORUS 4.4 mg/dL (2.5-4.9)
[2019-09-14 08:20] LABS: TOTAL IRON BINDING CAPACITY 413 ug/dL (250-450)
[2019-09-14] MEDS ORDERED: FERR325T6 MT (09:31)
[2019-09-14] MEDS ORDERED: PANT40TA4 MT (09:31)
[2019-09-14] MEDS ORDERED: SUCR1TAB30 MT (09:31)
[2019-09-14] MEDS ORDERED: IRON SUCROSE COMPLEX 100 MG/5 ML ML IV SCH (10:00)
== END 2019-09-14 17:12 | disposition home or self-care (01) | DRG 241 ==
LOC: ER 18:25 → MICUSO 20:06 → EDBEDREQTM 20:22 → EDBEDREQ 20:22 → 3WST 09-13 01:22
PROVIDERS: ADMIT Internal Medicine; ATTEND Internal Medicine
PROC: 30233N1 Transfusion of Nonautologous Red Blood Cells into Peripheral Vein, Percutaneous Approach (ICD-10-PCS; 2019-09-12)
PROC: 0DB68ZZ Excision of Stomach, Via Natural or Artificial Opening Endoscopic (ICD-10-PCS; principal; 2019-09-13)
DX: K25.6 Chronic or unspecified gastric ulcer with both hemorrhage and perforation (principal); D62 Acute posthemorrhagic anemia; E66.9 Obesity, unspecified; E11.9 Type 2 diabetes mellitus without complications; F17.200 Nicotine dependence, unspecified, uncomplicated; K29.70 Gastritis, unspecified, without bleeding; F41.9 Anxiety disorder, unspecified; K21.9 Gastro-esophageal reflux disease without esophagitis; K44.9 Diaphragmatic hernia without obstruction or gangrene; I10 Essential (primary) hypertension; Z88.0 Allergy status to penicillin; Z79.891 Long term (current) use of opiate analgesic; Z79.899 Other long term (current) drug therapy; Z68.33 Body mass index [BMI] 33.0-33.9, adult
CPT/HCPCS: 36415; 80048; 80053; 80061; 80305; 81003; 82378; 82550; 82553; 82728; 82962; 83036; 83540; 83550; 83735; 84100; 84443; 84484; 85014; 85018; 85025; 86850; 86900; 86920; 88305; 88312; 88313; 93005; 96374; 99152; 99285; C9113; J2250; J3010; J7030; J7040; J7050; P9016; G0500